=== PATIENT | female | born 1945 | race Caucasian/White ===

== ENCOUNTER 2016-11-11 08:00 | Outpatient (CLI) | payer MEDICARE, OTHER | END 2016-11-11 08:01 | disposition home or self-care (01) | DX: N39.0 Urinary tract infection, site not specified (principal) ==

== ENCOUNTER 2017-03-04 10:08 | Outpatient (CLI) | payer MEDICARE, OTHER | END 2017-03-04 10:09 | disposition home or self-care (01) | DX: Z12.31 Encounter for screening mammogram for malignant neoplasm of breast (principal) ==

== ENCOUNTER 2017-03-04 10:15 | Outpatient (CLI) | payer MEDICARE, OTHER | END 2017-03-04 10:16 | disposition home or self-care (01) | DX: M17.11 Unilateral primary osteoarthritis, right knee (principal) ==

== ENCOUNTER 2018-07-02 09:20 | Outpatient (CLI) | payer MEDICARE, OTHER ==
--- NOTE | 2018-07-05 09:14 | Mammography Report ---
Reason: SCREENING MAMMO Procedure Date: 07/02/2018 Accession Number: [id number] / [id number] Procedure: MGN - Screening Mammo Dig Bilat CPT Code: FULL RESULT: EXAM: Screening Mammo Dig Bilat DATE: 07/02/2018 9:41 AM CLINICAL HISTORY: 73-year-old female with 20 years of hormone replacement therapy presents for screening mammogram. TECHNIQUE: Bilateral CC and MLO views were obtained. COMPARISON: 03/04/2017, 02/20/2016, 03/01/2015, 02/28/2014. FINDINGS: The breasts demonstrate scattered fibroglandular densities bilaterally. Coarse typically benign bilateral calcifications are noted. There is an increasing asymmetry in the right breast seen on the MLO view 7 cm deep to the nipple and questionably on the cc view 5 cm deep to the nipple with associated increasing microcalcification. This finding warrants further dedicated mammographic views. IMPRESSION: Incomplete examination RECOMMENDATION: Additional evaluation as above. BIRADS CATEGORY 0: Incomplete examination STANDARD QUALIFYING STATEMENTS: 1. This examination was reviewed with the aid of Computer-Aided Detection (CAD). 2. A negative or benign imaging report should not delay biopsy if clinically suspicious findings are present. Consider surgical consultation if warrented. More than 5% of cancers are not identified by imaging. 3. Dense breasts may obscure an underlying neoplasm.
== END 2018-07-02 09:21 | disposition home or self-care (01) ==
LOC: DI.N 09:20
PROVIDERS: ATTEND Radiology Diagnostic Radiology
DX: Z12.31 Encounter for screening mammogram for malignant neoplasm of breast (principal)
CPT/HCPCS: 77067

== ENCOUNTER 2018-07-21 09:12 | Outpatient (CLI) | payer MEDICARE, OTHER ==
--- NOTE | 2018-07-21 10:10 | Mammography Report ---
Reason: ABN MAMMO - RT SPEC VIEWS Procedure Date: 07/21/2018 Accession Number: [id number] / [id number] Procedure: LUIS ARMANDO - Diag Special Views Dig RT CPT Code: FULL RESULT: EXAM: Diag Special Views Dig RT DATE: 07/21/2018 9:47 AM CLINICAL HISTORY: Possible increasing asymmetry in the central right breast on screening mammogram TECHNIQUE: Right MLO and CC spot compression views. COMPARISON: Mammogram 07/02/2018 FINDINGS: This examination is read in correlation with recent screening mammogram 07/02/2018. There are scattered fibroglandular densities. The questionable asymmetry of the right breast, retroareolar at mid depth, does not persist with spot compression views. No mass, architectural distortion, or concerning cluster of microcalcifications is seen. There are benign-appearing calcifications. IMPRESSION: BI-RADS Category 2. Benign findings. RECOMMENDATION: Annual screening mammogram unless otherwise clinically indicated. BIRADS CATEGORY 2: Benign findings STANDARD QUALIFYING STATEMENTS: 1. This examination was reviewed with the aid of Computer-Aided Detection (CAD). 2. A negative or benign imaging report should not delay biopsy if clinically suspicious findings are present. Consider surgical consultation if warrented. More than 5% of cancers are not identified by imaging. 3. Dense breasts may obscure an underlying neoplasm.
== END 2018-07-21 09:13 | disposition home or self-care (01) ==
LOC: DI 09:12
PROVIDERS: ATTEND Family Medicine
DX: R92.8 Other abnormal and inconclusive findings on diagnostic imaging of breast (principal)

== ENCOUNTER 2019-04-07 08:00 | Outpatient (CLI) | payer MEDICARE, OTHER ==
[2019-04-07 12:53] LABS: BILIRUBIN,URINE NEGATIVE (NEGATIVE); GLUCOSE, URINE (UA) NEGATIVE (NEGATIVE); KETONES,URINE (UA) NEGATIVE (NEGATIVE); LEUKOCYTE ESTERASE, URINE LARGE (NEGATIVE); NITRITE,URINE NEGATIVE (NEGATIVE); OCCULT BLOOD,URINE TRACE-INTA (NEGATIVE); PH,URINE 7.5 PH (5.0-7.5); PROTEIN,URINE NEGATIVE (NEGATIVE); UROBILINOGEN,URINE 0.2 (NORMAL) E.U./dL (NORMAL)
[2019-04-07 12:56] LABS: CLARITY,URINE CLEAR (CLEAR)
[2019-04-07 12:59] LABS: BASOPHILS % (AUTO) 0.8 %; EOSINOPHILS % (AUTO) 1.3 %; HGB - HEMOGLOBIN 13.2 g/dL (12.0-16.0); LYMPHOCYTES # (AUTO) 1.2 10^3/uL (1.5-3.5); LYMPHOCYTES % (AUTO) 36.1 %; MEAN CORPUSCULAR HEMOGLOBIN 26.9 pg (27.0-31.0); MEAN CORPUSCULAR HGB CONC 32.4 g/dL (32.0-36.0); MONOCYTES # (AUTO) 0.3 10^3/uL (0.0-1.0); NEUTROPHILS # (AUTO) 1.7 10^3/uL (1.5-6.6); NEUTROPHILS % (AUTO) 51.8 %; PLT - PLATELET COUNT 235 10^3/uL (130-450); RED BLOOD COUNT 4.93 10^6/uL (4.20-5.40); RED CELL DISTRIBUTION WIDTH 14.4 % (12.0-15.0); WHITE BLOOD COUNT 3.3 x10^3/uL (4.8-10.8)
[2019-04-07 13:09] LABS: BACTERIA,URINE Many /HPF (None Seen); SQUAMOUS EPITHELIAL CELL,UR FEW Squamous (<= Few); WBC CLUMPS,URINE PRESENT
[2019-04-07 13:12] LABS: CREATININE 0.6 mg/dL (0.4-1.0)
[2019-04-07 13:19] LABS: HEMOGLOBIN A1C 0.56 g/dL; HEMOGLOBIN A1C % 5.8 % (4.6-6.2)
== END 2019-04-07 23:59 | disposition home or self-care (01) ==
LOC: LAB.WCP 08:00
PROVIDERS: ATTEND Orthopaedic Surgery
DX: Z01.818 Encounter for other preprocedural examination (principal); N39.9 Disorder of urinary system, unspecified; R73.9 Hyperglycemia, unspecified; Z13.1 Encounter for screening for diabetes mellitus
CPT/HCPCS: 36415; 80048; 81001; 81003; 83036; 85025; 87077; 87086; 87181

== ENCOUNTER 2019-12-30 09:45 | Outpatient (CLI) | payer MEDICARE, OTHER ==
--- NOTE | 2020-01-10 09:20 | Mammography Report ---
Reason: ROUTINE MAMMO Procedure Date: 12/30/2019 Accession Number: [id number] / [id number] Procedure: MGN - Screening Mammo Dig Bilat CPT Code: Final Report FULL RESULT: EXAM: Screening Mammo Dig Bilat DATE: 12/30/2019 10:30 AM CLINICAL HISTORY: Screening encounter. TECHNIQUE: (B) - Bilateral CC and MLO views were obtained. COMPARISON: 07/21/2018 through 12/23/2010. PARENCHYMAL PATTERN: (A) - The breast(s) demonstrate(s) scattered fibroglandular densities. FINDINGS: There are no suspicious masses, calcifications, or areas of distortion. IMPRESSION: Negative examination. BI-RADS category 1. RECOMMENDATION: (ANNUAL) - Recommend routine annual screening mammography. BI-RADS CATEGORY: (1) - Negative. STANDARD QUALIFYING STATEMENTS: 1. This examination was not reviewed with the aid of Computer-Aided Detection (CAD). 2. A negative or benign imaging report should not preclude biopsy if clinically suspicious findings are present. 3. Dense breasts may obscure an underlying neoplasm. 4. This examination was reviewed without the aid of 3D breast imaging (tomosynthesis).
== END 2019-12-30 09:46 | disposition home or self-care (01) ==
LOC: DI.N 09:45
DX: Z12.31 Encounter for screening mammogram for malignant neoplasm of breast (principal)
CPT/HCPCS: 77067

== ENCOUNTER 2021-01-16 09:18 | Outpatient (CLI) | payer MEDICARE, OTHER ==
--- NOTE | 2021-01-17 13:25 | Mammography Report ---
BILATERAL DIGITAL SCREENING MAMMOGRAM 3D/2D: 01/16/2021 CLINICAL: Routine screening. Comparison is made to exams dated: 12/30/2019 mammogram, 07/21/2018 mammogram, 07/02/2018 mammogram, mammogram, 02/20/2016 mammogram, and 03/01/2015 mammogram - [facility]. Ther e are scattered fibroglandular elements in both breasts. There is an oval equal density mass with an obscured and circumscribed margin in the right breast at 7 o'clock anterior depth. No other significant masses, calcifications, or other findings are seen in either breast. IMPRESSION: INCOMPLETE: NEEDS ADDITIONAL IMAGING EVALUATION The oval equal density mass in the right breast is indeterminate. Mediolateral and spot compression views as well as additional views with possible ultrasound are recommended. This exam was interpreted at Station ID: [id number]. NOTE: For mammograms, a report in lay terms will be sent to the patient. Approximately 15% of breast malignancies will not be visualized mammographically. In the management of a palpable breast mass, a negative mammogram must not discourage biopsy of a clinically suspicious lesion. Electronically Signed By: Tony Mg M.D. ddp/penrad:01/16/2021 10:03:03 ACR BI-RADS Category 0: Incomplete 3340F PARENCHYMAL PATTERN: (A) - The breast(s) demonstrate(s) scattered fibroglandular densities. BI-RADS CATEGORY: (0) - 0 Mammo and [place] [id number] Immediate follow-up LATERALITY: (B)
== END 2021-01-16 09:19 | disposition home or self-care (01) ==
LOC: DI.N 09:18
DX: Z12.31 Encounter for screening mammogram for malignant neoplasm of breast (principal); N63.13 Unspecified lump in the right breast, lower outer quadrant

== ENCOUNTER 2021-01-30 08:48 | Outpatient (CLI) | payer MEDICARE, OTHER ==
--- NOTE | 2021-01-31 14:22 | Mammography Report ---
UNILATERAL RIGHT DIGITAL DIAGNOSTIC MAMMOGRAM 3D/2D: 01/30/2021 CLINICAL: Patient returns today to evaluate a focal asymmetry in the right breast. Comparison is made to exams dated: 01/16/2021 mammogram, 12/30/2019 mammogram, 07/21/2018 mammogram, mammogram, 03/04/2017 mammogram, and 02/20/2016 mammogram - [facility]. Ther e are scattered fibroglandular elements in right breast. Previously questioned asymmetry is less prominent. No other significant masses or calcifications are seen in the breast. IMPRESSION: INCOMPLETE: NEEDS ADDITIONAL IMAGING EVALUATION The oval equal density mass in the right breast is less prominent with spot compression but remains i ndeterminate. An ultrasound is recommended. This exam was interpreted at Station ID: [id number]. NOTE: For mammograms, a report in lay terms will be sent to the patient. Approximately 15% of breast malignancies will not be visualized mammographically. In the management of a palpable breast mass, a negative mammogram must not discourage biopsy of a clinically suspicious lesion. Electronically Signed By: Roque Oliver M.D. jr/:01/30/2021 11:10:07 ACR BI-RADS Category 0: Incomplete 3340F PARENCHYMAL PATTERN: (A) - The breast(s) demonstrate(s) scattered fibroglandular densities. BI-RADS CATEGORY: (0) - 0 Unspecified - other recall n/a LATERALITY: (B)
--- NOTE | 2021-01-31 14:22 | Ultrasound Report ---
LIMITED ULTRASOUND OF RIGHT BREAST: 01/30/2021 CLINICAL: Patient returns for additional imaging over a suspected cyst in the right breast. Comparison is made to exams dated: 01/30/2021 mammogram, 01/16/2021 mammogram, 12/30/2019 mammogram, 10/2018 mammogram, 07/02/2018 mammogram, and 03/04/2017 mammogram - [facility]. Ultrasound of the right breast 8 o'clock region was performed. There is a benign complicated cyst in the right breast at 7 o'clock anterior depth. IMPRESSION: BENIGN There is no sonographic evidence of malignancy. The complicated cyst in the right breast is benign. Return to annual mammogram screening schedule is recommended. This exam was interpreted at Station ID: [id number]. Electronically Signed By: Roque Oliver M.D., jr/stephanie:01/30/2021 11:10:33 Ultrasound BI-RADS: 2 Benign BI-RADS CATEGORY: (2) - 2 Mammogram [id number] return to screening LATERALITY: (B)
== END 2021-01-30 08:49 | disposition home or self-care (01) ==
LOC: DI 08:48
PROVIDERS: ATTEND Family Medicine
DX: R92.8 Other abnormal and inconclusive findings on diagnostic imaging of breast (principal); N60.01 Solitary cyst of right breast

== ENCOUNTER 2021-03-07 08:00 | Outpatient (CLI) | payer MEDICARE, OTHER | END 2021-03-07 23:59 | disposition home or self-care (01) | LOC: LAB.N 08:00 | PROVIDERS: ATTEND Nurse Practitioner | DX: R39.9 Unspecified symptoms and signs involving the genitourinary system (principal) | CPT/HCPCS: 87086 ==

== ENCOUNTER 2022-01-07 08:46 | Outpatient (CLI) | payer MEDICARE, OTHER ==
--- NOTE | 2022-01-08 12:08 | Mammography Report ---
BILATERAL DIGITAL SCREENING MAMMOGRAM 3D/2D: 01/07/2022 CLINICAL: Routine screening. Comparison is made to exams dated: 01/30/2021 ultrasound, 01/30/2021 mammogram, 01/16/2021 mammogram, mammogram, 07/21/2018 mammogram, and 07/02/2018 mammogram - [facility]. The re are scattered fibroglandular elements in both breasts. There is a benign cyst in the right breast. There also are benign cysts in the left breast. No significant masses, calcifications, or other findings are seen in either breast. There has been no significant interval change. IMPRESSION: BENIGN There is no mammographic evidence of malignancy. A 1 year screening mammogram is recommended. This exam was interpreted at Station ID: [id number]. NOTE: For mammograms, a report in lay terms will be sent to the patient. Approximately 15% of breast malignancies will not be visualized mammographically. In the management of a palpable breast mass, a negative mammogram must not discourage biopsy of a clinically suspicious lesion. Electronically Signed By: Benjy King M.D. slc/penrad:01/07/2022 12:29:03 ACR BI-RADS Category 2: Benign Finding(s) 3342F PARENCHYMAL PATTERN: (A) - The breast(s) demonstrate(s) scattered fibroglandular densities. BI-RADS CATEGORY: (2) - 2 RECOMMENDATION: (ANNUAL) - Recommend routine annual screening mammography. [id number] 1 year screening LATERALITY: (B)
== END 2022-01-07 08:47 | disposition home or self-care (01) ==
LOC: DI.N 08:46
DX: Z12.31 Encounter for screening mammogram for malignant neoplasm of breast (principal)

== ENCOUNTER 2022-06-01 08:00 | Outpatient (CLI) | payer MEDICARE, OTHER | END 2022-06-01 23:59 | disposition home or self-care (01) | LOC: LAB.N 08:00 | PROVIDERS: ATTEND Nurse Practitioner | DX: N39.0 Urinary tract infection, site not specified (principal) | CPT/HCPCS: 87086 ==

== ENCOUNTER 2023-01-08 09:05 | Outpatient (CLI) | payer MEDICARE, OTHER ==
--- NOTE | 2023-01-09 14:58 | Mammography Report ---
BILATERAL DIGITAL SCREENING MAMMOGRAM 3D/2D: 01/08/2023 CLINICAL: Routine screening. Comparison is made to exams dated: 01/07/2022 mammogram, 01/30/2021 ultrasound, 01/30/2021 mammogram, 08/2021 mammogram, 12/30/2019 mammogram, and 07/21/2018 mammogram - [facility]. There are scattered areas of fibroglandular density in both breasts (category b / 25%-50% glandular t issue). There is a benign cyst in the right breast. There also are benign cysts in the left breast. No significant masses, calcifications, or other findings are seen in either breast. There has been no significant interval change. IMPRESSION: BENIGN There is no mammographic evidence of malignancy. A 1 year screening mammogram is recommended. Based on the Tyrer Cuzick model (a risk assessment model) the patients lifetime risk is 2.3% and her 10 year risk is 0.0%. According to the ACR, ACS, and NCCN guidelines, an annual breast MRI exam doreen g with mammogram is recommended if the patients lifetime risk is 20% or greater. This exam was interpreted at Station ID: [id number]. NOTE: For mammograms, a report in lay terms will be sent to the patient. Approximately 15% of breast malignancies will not be visualized mammographically. In the management of a palpable breast mass, a negative mammogram must not discourage biopsy of a clinically suspicious lesion. Electronically Signed By: Gene vora/stephanie:01/08/2023 11:42:57 letter sent: No_Letter ACR BI-RADS Category 2: Benign Finding(s) 3342F PARENCHYMAL PATTERN: (A) - The breast(s) demonstrate(s) scattered fibroglandular densities. BI-RADS CATEGORY: (2) - 2 Mammogram [id number] 1 year screening LATERALITY: (B)
== END 2023-01-08 09:06 | disposition home or self-care (01) ==
LOC: DI.N 09:05
DX: Z12.31 Encounter for screening mammogram for malignant neoplasm of breast (principal)

== ENCOUNTER 2023-04-16 07:09 | Outpatient (CLI) | payer MEDICARE, OTHER ==
[2023-04-16 12:31] LABS: THYROID STIMULATING HORMONE < 0.08 uIU/mL (0.34-5.60)
[2023-04-16 13:02] LABS: FREE T4 (FREE THYROXINE) 1.14 ng/dL (0.58-1.64)
== END 2023-04-16 07:10 | disposition home or self-care (01) ==
LOC: LAB.N 07:09
PROVIDERS: ATTEND Physician Assistant
DX: R94.6 Abnormal results of thyroid function studies (principal)
CPT/HCPCS: 36415; 84439; 84443; 84481

== ENCOUNTER 2023-04-20 09:30 | Outpatient (CLI) | payer MEDICARE, OTHER | END 2023-04-20 09:45 | disposition home or self-care (01) | LOC: LAB.N 09:30 | PROVIDERS: ATTEND Nurse Practitioner | DX: N39.0 Urinary tract infection, site not specified (principal) | CPT/HCPCS: 87077; 87086; 87181 ==

== ENCOUNTER 2023-04-30 09:57 | Outpatient (CLI) | payer MEDICARE, OTHER ==
[2023-04-30 10:43] LABS: THYROID STIMULATING HORMONE < 0.08 uIU/mL (0.34-5.60)
[2023-04-30 10:44] LABS: FREE T3 3.69 pg/mL (2.5-3.9)
[2023-04-30 10:45] LABS: FREE T4 (FREE THYROXINE) 1.12 ng/dL (0.58-1.64)
--- NOTE | 2023-04-30 16:49 | Ultrasound Report ---
PROCEDURE: Head or Neck Soft Tissue INDICATIONS: HYPERTHYROIDISM TECHNIQUE: Real-time scanning was performed of the thyroid gland, with image documentation. COMPARISON: None FINDINGS: Right: Thyroid lobe measures 5.7 x 1.8 x 1.9 cm, and is homogeneous in echotexture. Left: Thyroid lobe measures 5.4 x 2.0 x 2.3 cm, and is homogenous in echotexture. Isthmus: 2.3 mm thick. Small subcentimeter: Cysts is noted throughout the right and left lobes of thyroid Nodule number: One Location: Right superior Size: 0.7 x 0.8 x 0.5 cm. Composition: Solid (2 points). Echogenicity: Hypoechoic (2 points). Shape: wider than tall. Margins: Smooth (0 points). Echogenic foci: None (0 points). Total points: 4 ACR TI-RADS category: 4. Nodule number: Two Location: Right mid Size: 0.5 x 0.6 x 0.5 cm. Composition: Solid (2 points). Echogenicity: Hypoechoic (2 points). Shape: wider than tall. Margins: Smooth (0 points). Echogenic foci: None (0 points). Total points: 4 ACR TI-RADS category: 4. Nodule number: Three Location: Right inferior Size: 1.1 x 0.9 x 0.9 cm. Composition: Solid (2 points). Echogenicity: Isoechoic (1 point). Shape: wider than tall. Margins: Smooth (0 points). Echogenic foci: None (0 points). Total points: 3 ACR TI-RADS category: 3. IMPRESSION: 3 separate nodules in the right lobe of the thyroid. Best practice guidelines suggest follow-up sched ule as below ACR TI-RADS definitions and recommendations: TI-RADS 1 (benign): 0 points. FNA not needed. TI-RADS 2 (not suspicious): 2 points. FNA not needed. TI-RADS 3 (mildly suspicious): 3 points. "FNA if 2.5 cm or larger, follow up if 1.5 cm or larger (at 1, 3, and 5 years). TI-RADS 4 (moderately suspicious): 4-6 points. "FNA if 1.5 cm or larger, follow up if 1 cm or larger (at 1, 2, 3, and 5 years). TI-RADS 5 (highly suspicious): 7 points or more. "FNA if 1 cm or larger, follow up if 0.5 cm or larger (every year for 5 years). Reviewed by: Wesley Alonzo MD on 04/30/2023 3:47 PM AKDT Approved by: Wesley Alonzo MD on 04/30/2023 3:47 PM AKDT Station ID: [id number]
[2023-05-01 18:07] LABS: THYROGLOBULIN ANTIBODY 1.2 IU/mL (0.0-0.9)
== END 2023-04-30 09:58 | disposition home or self-care (01) ==
LOC: DI 09:57
PROVIDERS: ATTEND Physician Assistant
DX: E04.2 Nontoxic multinodular goiter (principal); E23.0 Hypopituitarism; E05.90 Thyrotoxicosis, unspecified without thyrotoxic crisis or storm
CPT/HCPCS: 36415; 84439; 84443; 84481; 86376; 86800

== ENCOUNTER 2023-06-08 20:04 | Inpatient (IN) | payer MEDICARE, OTHER ==
[2023-06-08] MEDS ORDERED: SODIUM CHLORIDE 0.9% 1,000 ML IV STA ×2 (20:33→21:38)
[2023-06-08] MEDS ORDERED: ONDANSETRON 4 MG/2 ML VIAL IVP STA (20:33)
[2023-06-08 20:41] LABS: BASOPHILS % (AUTO) 0.1 %; EOSINOPHILS % (AUTO) 0.1 %; HCT - HEMATOCRIT 36.9 % (37.0-47.0); HGB - HEMOGLOBIN 12.5 g/dL (12.0-16.0); LYMPHOCYTES # (AUTO) 0.7 10^3/uL (1.5-3.5); LYMPHOCYTES % (AUTO) 9.2 %; MEAN CORPUSCULAR HEMOGLOBIN 26.3 pg (27.0-31.0); MEAN CORPUSCULAR HGB CONC 33.9 g/dL (32.0-36.0); MEAN CORPUSCULAR VOLUME 77.5 fL (81.0-99.0); MEAN PLATELET VOLUME 10.6 fL (7.9-10.8); MONOCYTES # (AUTO) 0.5 10^3/uL (0.0-1.0); MONOCYTES % (AUTO) 6.4 %; NEUTROPHILS # (AUTO) 6.7 10^3/uL (1.5-6.6); PLT - PLATELET COUNT 218 10^3/uL (130-450); RED BLOOD COUNT 4.76 10^6/uL (4.20-5.40); RED CELL DISTRIBUTION WIDTH 13.9 % (12.0-15.0)
[2023-06-08 20:59] LABS: ALBUMIN 3.8 g/dL (3.2-5.5)
[2023-06-08 21:11] LABS: ALBUMIN/GLOBULIN RATIO 1.3 (1.0-2.2); BILIRUBIN,TOTAL 2.2 mg/dL (0.2-1.0); CALCIUM 9.6 mg/dL (8.5-10.3); CREATININE 0.4 mg/dL (0.6-1.3); POTASSIUM 3.3 mmol/L (3.5-4.5); TOTAL PROTEIN 6.8 g/dL (6.4-8.9)
[2023-06-08 21:37] LABS: B. PARAPERTUSSIS- RESP PCR PAN NOT DETECTED; B. PERTUSSIS- RESP PCR PANEL NOT DETECTED; C. PNEUMONIAE- RESP PCR PANEL NOT DETECTED; CORONAVIRUS 229E-RESP PCR NOT DETECTED; CORONAVIRUS HKU1-RESP PCR NOT DETECTED; CORONAVIRUS NL63-RESP PCR NOT DETECTED; CORONAVIRUS OC43-RESP PCR NOT DETECTED; HUMAN METAPNEUMOVIRUS NOT DETECTED; INFLUENZA A- RESP PCR PANEL NOT DETECTED; INFLUENZA B - RESP PCR PANEL NOT DETECTED; M. PNEUMONIAE- RESP PCR PANEL NOT DETECTED; PARAINFLUENZA VIRUS 1 NOT DETECTED; PARAINFLUENZA VIRUS 2 NOT DETECTED; PARAINFLUENZA VIRUS 3 NOT DETECTED; PARAINFLUENZA VIRUS 4 NOT DETECTED; RHINOVIRUS/ENTEROVIRUS NOT DETECTED; RSV- RESP PCR PANEL NOT DETECTED; SARS-CoV-2 -RESP PCR PANEL NOT DETECTED
[2023-06-08 21:58] LABS: BILIRUBIN,URINE NEGATIVE (NEGATIVE); GLUCOSE, URINE (UA) NEGATIVE (NEGATIVE); KETONES,URINE (UA) TRACE mg/dL (NEGATIVE); LEUKOCYTE ESTERASE, URINE SMALL (NEGATIVE); NITRITE,URINE POSITIVE (NEGATIVE); OCCULT BLOOD,URINE NEGATIVE (NEGATIVE); PROTEIN,URINE NEGATIVE (NEGATIVE); UROBILINOGEN,URINE 0.2 (NORMAL) E.U./dL (NORMAL)
[2023-06-08 22:01] LABS: CLARITY,URINE HAZY (CLEAR)
[2023-06-08 22:04] LABS: BACTERIA,URINE Many /HPF (None Seen); RBC,URINE 0-5 /HPF (0-5); SQUAMOUS EPITHELIAL CELL,UR RARE Squamous (<= Few)
[2023-06-08] MEDS ORDERED: cefTRIAXone 1 GM VIAL IVP STA (22:17)
[2023-06-08 23:27] LABS: CALCIUM 8.7 mg/dL (8.5-10.3); CREATININE 0.5 mg/dL (0.4-1.0); POTASSIUM 3.2 mmol/L (3.5-5.0)
--- NOTE | 2023-06-08 23:44 | CT Report ---
PROCEDURE: HEAD WO INDICATIONS: altered TECHNIQUE: Noncontrast 4.5 mm thick angled axial sections acquired from the foramen magnum to the vertex. For r adiation dose reduction, the following was used: automated exposure control, adjustment of mA and/or kV according to patient size. COMPARISON: None. FINDINGS: Image quality: Excellent. CSF spaces: There is mild cerebral volume loss with prominence of the ventricles and sulci. Basal ci sterns are patent. No extra-axial fluid collections. Brain: No intracranial hemorrhage or midline shift. There is an oval slightly hyperattenuating lesio n in the left occipital lobe medial to the posterior horn of the left lateral ventricle. This demonst rates indistinct margins. There are subcortical and periventricular white matter hypodensities consis tent with mild chronic small vessel ischemic changes. Skull and face: Calvarium and visualized facial bones are intact, without suspicious lesions. Sinuses: Visualized sinuses and mastoids are clear. IMPRESSION: 1. No acute intracranial hemorrhage or midline shift. 2. Hyperattenuating mass lesion medially in the left occipital lobe. The differential includes a prim ganesh neoplasm such as a glioma or metastatic disease. Recommend further evaluation with a contrast-enh anced MRI when clinically feasible. Findings discussed with Dr. Matson on 06/08/2023 at 11:38 PM. Reviewed by: Tony Harris MD on 06/08/2023 11:42 PM PDT Approved by: Tony Harris MD on 06/08/2023 11:42 PM PDT Station ID: [id number]
--- NOTE | 2023-06-08 23:47 | ED Physician Documentation ---
History of Present Illness - Stated complaint Stated Complaint: DISORIENTED - Chief complaint Chief Complaint: Neuro - History obtained from History obtained from: Patient, Family - History of Present Illness Timing: Today Pain level max: 0 Pain level now: 0 - Additonal information Additional information: Patient is a 78-year-old female brought in by family today. She states that she had a "thyroid scan" on Thursday at [facility]. She states since that time she has felt generally unwell. Has had nausea and vomiting today. No fevers. No chills. Family states that she has been "confused" and slower to respond than usual. Patient is on atenolol at home. No recent travel or antibiotics. No recent surgeries. No focal neurological deficits. No slurred speech. No facial droop. Review of Systems Constitutional: denies: Fever, Chills Cardiac: denies: Chest pain / pressure, Palpitations Respiratory: denies: Dyspnea, Cough GI: reports: Nausea, Vomiting. denies: Diarrhea : denies: Dysuria, Frequency, Hesitancy Skin: denies: Rash Musculoskeletal: denies: Neck pain, Back pain Neurologic: reports: Confused. denies: Headache, Head injury, LOC PD PAST MEDICAL HISTORY - Past Medical History Past Medical History: Yes Cardiovascular: Hypertension - Allergies Allergies/Adverse Reactions: Allergies Allergy/AdvReac Type Severity Reaction Status Date / Time No Known Drug Allergies Allergy Verified 06/08/23 20:08 - Living Situation Living Arrangement: reports: At home - Social History Does the pt smoke?: No Does the pt have substance abuse?: No - Family History Family history: reports: Non contributory PD ED PE NORMAL - Vitals Vital signs reviewed: Yes - General General: Alert and oriented X 3, No acute distress, Well developed/nourished, Other (Mildly slow to respond.) - HEENT HEENT: PERRL, Moist mucous membranes, Pharynx benign - Neck Neck: Supple, no meningeal sign, No bony TTP - Cardiac Cardiac: RRR, Strong equal pulses - Respiratory Respiratory: No respiratory distress, Clear bilaterally - Abdomen Abdomen: Soft, Non tender, Non distended - Back Back: No CVA TTP, No spinal TTP - Derm Derm: Warm and dry, No rash - Extremities Extremities: No edema, No calf tenderness / cord - Neuro Neuro: Alert and oriented X 3 - Psych Psych: Normal mood, Normal affect Results - Vitals Vitals: Vital Signs - 24 hr 06/08/23 06/08/23 20:08 23:00 Temperature 36.5 C Heart Rate 85 87 Respiratory 16 18 Rate Blood Pressure 156/78 H 149/105 H O2 Saturation 100 98 Oxygen O2 Source Room air - Labs Labs: Laboratory Tests 06/08/23 06/08/23 06/08/23 20:20 20:28 20:28 WBC 8.0 RBC 4.76 Hgb 12.5 Hct 36.9 L MCV 77.5 L MCH 26.3 L MCHC 33.9 RDW 13.9 Plt Count 218 MPV 10.6 Neut # (Auto) 6.7 H Lymph # (Auto) 0.7 L Vigo # (Auto) 0.5 Eos # (Auto) 0.0 Baso # (Auto) 0.0 Absolute Nucleated RBC 0.00 Nucleated RBC % 0.0 Sodium 118 L* Potassium 3.3 L Chloride 86 L Carbon Dioxide 25 Anion Gap 7.0 BUN 6 Creatinine 0.4 L Estimated GFR (MDRD) 155 Glucose 148 H Calcium 9.6 Total Bilirubin 2.2 H AST 15 ALT 15 Alkaline Phosphatase 58 Total Protein 6.8 Albumin 3.8 Globulin 3.0 Albumin/Globulin Ratio 1.3 Lipase 8 L Urine Color Urine Clarity Urine pH Ur Specific Pansey Urine Protein Urine Glucose (UA) Urine Ketones Urine Occult Blood Urine Nitrite Urine Bilirubin Urine Urobilinogen Ur Leukocyte Esterase Urine RBC Urine WBC Ur Squamous Epith Cells Urine Bacteria Ur Microscopic Review Urine Culture Comments Nasal Adenovirus (PCR) NOT DETECTED Nasal B. parapertussis DNA (PCR) NOT DETECTED Nasal Coronavir 229E PCR NOT DETECTED Nasal Coronavir HKU1 PCR NOT DETECTED Nasal Coronavir NL63 PCR NOT DETECTED Nasal Coronavir OC43 PCR NOT DETECTED Nasal Enterovir/Rhinovir PCR NOT DETECTED Nasal Influenza B PCR NOT DETECTED Nasal Influenza A PCR NOT DETECTED Nasal Parainfluen 1 PCR NOT DETECTED Nasal Parainfluen 2 PCR NOT DETECTED Nasal Parainfluen 3 PCR NOT DETECTED Nasal Parainfluen 4 PCR NOT DETECTED Nasal RSV (PCR) NOT DETECTED Nasal B.pertussis DNA PCR NOT DETECTED Nasal C.pneumoniae (PCR) NOT DETECTED Vamshi Human Metapneumo PCR NOT DETECTED Nasal M.pneumoniae (PCR) NOT DETECTED Nasal SARS-CoV-2 (PCR) NOT DETECTED 06/08/23 06/08/23 21:38 23:06 WBC RBC Hgb Hct MCV MCH MCHC RDW Plt Count MPV Neut # (Auto) Lymph # (Auto) Vigo # (Auto) Eos # (Auto) Baso # (Auto) Absolute Nucleated RBC Nucleated RBC % Sodium 126 L Potassium 3.2 L Chloride 91 L Carbon Dioxide 25 Anion Gap 10.0 BUN 6 Creatinine 0.5 Estimated GFR (MDRD) 120 Glucose 141 H Calcium 8.7 Total Bilirubin AST ALT Alkaline Phosphatase Total Protein Albumin Globulin Albumin/Globulin Ratio Lipase Urine Color YELLOW Urine Clarity HAZY Urine pH 7.0 Ur Specific Pansey <=1.005 Urine Protein NEGATIVE Urine Glucose (UA) NEGATIVE Urine Ketones TRACE Urine Occult Blood NEGATIVE Urine Nitrite POSITIVE H Urine Bilirubin NEGATIVE Urine Urobilinogen 0.2 (NORMAL) Ur Leukocyte Esterase SMALL H Urine RBC 0-5 Urine WBC 11-25 H Ur Squamous Epith Cells RARE Squamous Urine Bacteria Many H Ur Microscopic Review INDICATED Urine Culture Comments INDICATED Nasal Adenovirus (PCR) Nasal B. parapertussis DNA (PCR) Nasal Coronavir 229E PCR Nasal Coronavir HKU1 PCR Nasal Coronavir NL63 PCR Nasal Coronavir OC43 PCR Nasal Enterovir/Rhinovir PCR Nasal Influenza B PCR Nasal Influenza A PCR Nasal Parainfluen 1 PCR Nasal Parainfluen 2 PCR Nasal Parainfluen 3 PCR Nasal Parainfluen 4 PCR Nasal RSV (PCR) Nasal B.pertussis DNA PCR Nasal C.pneumoniae (PCR) Vamshi Human Metapneumo PCR Nasal M.pneumoniae (PCR) Nasal SARS-CoV-2 (PCR) - Rads (name of study) CT head Relevant Findings:: Final report received, See rad report CT chest Relevant Findings:: Final report received, See rad report CT abd/pelvis Relevant Findings:: Final report received, See rad report PD Medical Decision Making - ED course Complexity details: reviewed results, re-evaluated patient, considered differe hunterial, d/w patient, d/w family ED course: 78-year-old female with altered mental status, nausea and vomiting. She has significant hyponatremia on laboratory testing. CBC does not show any significant abnormalities. Sodium 118. She is not on any diuretics. She was given normal saline. Repeat sodium is at 126. Last sodium we have here was 132 in 2019. Patient states she has never had hyponatremia before. No significant findings on CT of the abdomen pelvis or chest CT other than a possible mild colitis. Her head CT does show a small mass. Discussed with radiology, recommend MRI with contrast in the morning for further characterization. We will admit the patient for hyponatremia with altered mental status, UTI, given Rocephin, and further evaluation of the brain mass. There is no midline shift. Consult placed for hospitalist service. Discussed case the hospitalist service and will admit for further care. This document was made in part using voice recognition software. While efforts are made to proofread this document, sound alike and grammatical errors may occur. Departure - Departure Disposition: 66 [facility] DC/Xfer Clinical Impression: Hyponatremia, Brain mass UTI (urinary tract infection) Qualifiers: Urinary tract infection type: acute cystitis Hematuria presence: without hematuria Qualified Code(s): N30.00 - Acute cystitis without hematuria Altered mental status Qualifiers: Altered mental status type: unspecified Qualified Code(s): R41.82 - Altered mental status, unspecified Condition: Stable Forms: PCP List
--- NOTE | 2023-06-09 00:08 | CT Report ---
PROCEDURE: CHEST W INDICATIONS: hyponatremia CONTRAST: Omni 300 100ml TECHNIQUE: After the administration of intravenous contrast, 1 mm axial images were acquired from the pulmonary apices through the posterior costophrenic angles. Axial 5 mm soft tissue kernel reconstructions were performed as well as 8 mm axial MIP and coronal and sagittal 5 mm reformations. For radiation dose reduction, the following was used: automated exposure control, adjustment of mA and/or kV according to patient size. COMPARISON: None. FINDINGS: Image quality: There is beam hardening artifact from patient's upper extremities limiting evaluation. Lower Neck: No lymphadenopathy by size criteria. Thyroid: Visualized thyroid demonstrates no discrete nodules. Axillae: No lymphadenopathy by size criteria. Chest Wall: Unremarkable. Bones: There is mild scalloping along with severe endplate of the L1 vertebral body of indeterminate acuity. Visualized osseous structures demonstrate no suspicious lesions. Lungs and Airways: No acute consolidation. There is mild dependent atelectasis bilaterally. The righ t upper lobe 0.3 cm pulmonary nodule on series 3 image 17. In the left upper lobe, there is a 0.3 cm nodule on series 3 image 22. The trachea and central airways are patent. Pleura: No pneumothorax or pleural effusions. Heart: Heart size is normal. No pericardial effusion. Thoracic Vessels: The aorta and pulmonary arteries are normal in size. Mediastinum and Sommer: No lymphadenopathy by size criteria. Esophagus: No wall thickening. No hiatal hernia. Upper Abdomen: Unremarkable. IMPRESSION: 1. Small pulmonary nodules in the upper lobes measuring up to 0.3 cm are indeterminate. Recommend att ention on follow-up. 2. No suspicious mass lesions. Reviewed by: Tony Harris MD on 06/09/2023 12:07 AM PDT Approved by: Tony Harris MD on 06/09/2023 12:07 AM PDT Station ID: [id number]
[2023-06-09] MEDS ORDERED: SODIUM CHLORIDE FLUSH 0.9% 10 ML SYRINGE IVP PRN (00:29)
[2023-06-09] MEDS ORDERED: ONDANSETRON 4 MG/2 ML VIAL IVP PRN (00:29)
[2023-06-09] MEDS ORDERED: ACETAMINOPHEN 325 MG TABLET PO PRN (00:29)
--- NOTE | 2023-06-09 00:29 | CT Report ---
PROCEDURE: ABDOMEN/PELVIS W INDICATIONS: LLQ pain, vomiting CONTRAST: Omni 300 100ml TECHNIQUE: After the administration of intravenous contrast, 5 mm thick sections acquired from the diaphragms to the symphysis. 5 mm thick coronal and sagittal reformats were acquired. For radiation dose reducti on, the following was used: automated exposure control, adjustment of mA and/or kV according to merrill ent size. COMPARISON: Concurrent CT of the chest. FINDINGS: Image quality: Excellent. Lung bases:There is mild dependent atelectasis. Heart: Heart is normal in size. ABDOMEN: Liver: No mass lesion. Gallbladder: Within normal limits without calcified gallstones. Biliary ducts: No biliary ductal dilatation. Pancreas: Unremarkable. Spleen: Normal in size. Adrenal Glands: No adrenal nodules. Kidneys and Ureters:No definite hydronephrosis. There is mild fullness of the renal collecting syste ms bilaterally likely secondary to bladder distention. Stomach and Bowel: Stomach and small bowel loops are normal in caliber and wall thickness. No perice carlos plantar changes to suggest appendicitis. There is colonic diverticulosis without definite acute d iverticulitis. Mild short segment wall thickening is demonstrated in the sigmoid colon. Peritoneum: No abnormal intraperitoneal fluid. No free air. Ventral Wall: No hernia. Abdominal Nodes: No retroperitoneal or mesenteric adenopathy by size criteria. Vessels: Aorta and inferior vena cava are normal in size. PELVIS: Pelvic Organs: Unremarkable. Bladder:There is marked distention of the urinary bladder. No bladder wall thickening.. Pelvic Nodes: No enlarged lymph nodes. Miscellaneous: No inguinal hernias. Bones: Visualized osseous structures demonstrate no suspicious lesions. IMPRESSION: 1. Mild short segment wall thickening in the sigmoid colon suggestive of a colitis. However, an intra mural mass cannot be excluded. Consider further evaluation with colonoscopy. 2. Marked distention of the urinary bladder. Reviewed by: Tony Harris MD on 06/09/2023 12:28 AM PDT Approved by: Tony Harris MD on 06/09/2023 12:28 AM PDT Station ID: [id number]
[2023-06-09] MEDS ORDERED: SODIUM CHLORIDE 0.9% 1,000 ML IV SCH (01:00)
--- NOTE | 2023-06-09 01:12 | HISTORY & PHYSICAL EXAMINATION ---
History and Physical - History and Physical Chief Complaint: Altered Mental Status History of Present Illness The patient, a 78-year-old female, was brought to the emergency room by her family due to confusion. Two days prior, she had undergone a thyroid scan. Today, she presents with symptoms of nausea, confusion, and an occasional headache. Her sodium level was notably low at 118, prompting the administration of an IV fluid bolus. A CT scan of her head revealed a potential brain mass. Urinalysis results indicated the likelihood of a urinary tract infection (UTI), and the patient received IV Rocephin. At present, she is alert and able to respond accurately to all questions. Her family, who are present at the bedside, reported that this is her first episode of confusion. She denies any recent weight loss, night sweats, fever, chills, chest pain, shortness of breath, or lower extremity edema. The patient is currently on Atenolol and is able to walk independently. Past Medical History Hypertension Past Surgical History None Social History No history of alcohol or illicit drug use Family History No family history of cancer Allergies The patient has a known allergy to diabetes and has shown an elevated response to Atenolol. Physical Examination *Vital Signs:* - Blood Pressure: 149/90 - Respiration: 18 - Heart Rate: 87 - Oxygen Saturation: 98% on room air *General:* The patient's head is atraumatic and normocephalic. Pupils are reactive to light and accommodation. The neck shows no JVD. CVS presents a regular rate rhythm. Respiratory sounds are equal on both sides. The abdomen is neither tender nor distended. No clubbing, cyanosis, or edema is observed in the extremities. Musculoskeletal examination reveals no calf tenderness. Neurologically, the patient is alert, oriented to time, place, and person, and able to move all four extremities. Psychologically, the patient displays a normal mood and affect. Labs All necessary labs have been reviewed. Imaging CT of the head has been reviewed. Assessment 1. Acute metabolic encephalopathy 2. Severe hyponatremia 3. Possible sigmoid colitis 4. UTI 5. Brain mass, left occipital lobe 6. Abnormal thyroid level 7. Hypertension Plan The patient will be admitted on telemetry. Her treatment plan includes IV hydration with normal saline at a reduced rate of 75 ml per hour due to her rapid sodium correction. She will continue receiving IV Rocephin and Flagyl for the UTI and possible colitis. An MRI of the brain, with and without contrast, will be scheduled for the morning, alongside regular neurological checks. The patient will continue her Atenolol regimen. Code Status Full code Additional Notes This telemedicine evaluation, which used a bedside telemedicine audiovisual cart, took a total of 70 minutes. Verbal consent was obtained before the encounter. The patient is currently located in the emergency room of [facility] in [facility], while I am based in [place], [place].
[2023-06-09] MEDS ORDERED: metroNIDAZOLE 500 MG/100 ML 500 MG/100 ML BAG IV SCH (02:00)
[2023-06-09] MEDS ORDERED: iohexoL-300 100 ML VIAL IVP ONE (02:07)
[2023-06-09] MEDS: SODIUM CHLORIDE FLUSH 0.9% 10 ML SYRINGE IVP SCH ×2 (03:04→08:32)
[2023-06-09 05:53] LABS: CALCIUM 8.9 mg/dL (8.5-10.3); CREATININE 0.5 mg/dL (0.6-1.3); POTASSIUM 3.5 mmol/L (3.5-4.5)
[2023-06-09] MEDS ORDERED: DEXTROSE 5% 1,000 ML IV SCH (09:00)
[2023-06-09] MEDS ORDERED: METOPROLOL TARTRATE 25 MG TABLET PO SCH (09:00)
[2023-06-09] MEDS ORDERED: HEPARIN 5,000 UNIT/ML VIAL SUBQ SCH (09:00)
--- NOTE | 2023-06-09 10:53 | PHARMACY PROGRESS NOTE ---
- Best Possible Medication History Admit Date and Time: 06/09/23 0029 Processed by: Pharmacy Medication History completed: Yes Patient Interview: Completed Secondary Source(s): Pharmacy records As the person ultimately responsible for medication therapy, providers are able to order a medication from an existing home medication list in [facility] via the "Reconcile Routine" prior to Confirmation of that medication by technician support association. Such practice is discouraged except when the physician, in their clinical judgment, deems that a medical need exists for a medication without regard to previous use.
--- NOTE | 2023-06-09 15:37 | MRI Report ---
PROCEDURE: BRAIN W/WO INDICATIONS: brain mass CONTRAST: gadavist 7.8ml TECHNIQUE: Noncontrast axial T1 spin echo, axial T2 fast spin echo, sagittal and axial FLAIR, coronal T2 fast sp in echo, axial gradient echo, axial diffusion and ADC through the brain. After the administration of contrast, axial and coronal T1 spin echo with fat saturation through the brain. COMPARISON: CT head 06/08/2023 FINDINGS: Image quality: Excellent. CSF spaces: Basal cisterns are patent. No extra-axial fluid collections. Ventricles are normal in size and shape. Brain: In the posterior horn of the left ventricle, there is a relative hyperintense T1, T2 mass with very minimal areas of heterogeneous enhancement there is significant hypointensity on gradient seque nce encompassing significant portions of the mass. There is no vasogenic edema. There is very minimal effacement of the superior aspect of the posterior left quadrigeminal plate cistern secondary to loc ation of mass rather than true vasogenic edema. There is cerebral volume loss for age. There is periventricular white matter chronic small vessel is chemic change. The brainstem appears normal. Diffusion-weighted images demonstrate no acute ischemi c insults. No chronic ischemic insults. Normal intravascular flow voids are present. Skull and face: Calvarial marrow is normal in signal. Orbits appear normal. Sinuses: Sinuses and mastoids appear clear. IMPRESSION: Heterogeneous mass within the posterior horn of the left ventricle corresponding to hyperdensity iden tified on CT exam. There appears the areas of hemosiderin deposition/calcification with minimal/irreg ular enhancement. 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 Reviewed by: Dorcas Montgomery MD on 06/09/2023 3:36 PM PDT Approved by: Dorcas Montgomery MD on 06/09/2023 3:36 PM PDT Station ID: [id number]
--- NOTE | 2023-06-09 15:50 | Discharge Plan ---
Discharge Plan Problem Reviewed?: Yes Disposition: Home, Self Care Condition: Stable Diet: Regular (No more than 2000 mL of fluid/2 L a day) Activity Restrictions: Activity as Tolerated Shower Restrictions: No Driving Restrictions: No Health Concerns: You came to the emergency room because you had not been feeling well starting the night before. You were nauseated, vomiting, lightheaded and more confused. You are wondering if this is reaction to a thyroid scan that was done on June 05. We found you to have a very low sodium of 118. Normal is 135. You do not have to take any medications that cause low sodium, you do not have any diseases that cause water retention that caused low sodium, nor do you have compulsive water drinking. You do drink approximately 4 L or 1 gallon of water a day. In evaluating other causes of low sodium, which is a syndrome of inappropriate antidiuretic hormone, a CAT scan was done of your brain. You do have a lesion on the left side. A an MRI was done to make sure this was not cancer. We really cannot tell. The final report is not back yet. Plan of Treatment: 1. Please see your primary care provider, Cheri Smith, for follow-up 2. Please have your primary care provider follow-up on the MRI report. The MRI should establish whether you need to be seen by a neurosurgeon or whether this could just be watched. 3. I would like you to get your blood test done for your sodium again. Please do it on June 16. I have provided you with a lab slip to do so. You can get your blood drawn here at this hospital. 4. You were identified as having a urinary tract infection. Bactrim DS has been prescribe and sent to your pharmacy. Care Goals: The whole reason you were seen for the thyroid scan was fatigue. Your hope was to find out why you are tired and to get to the bottom of it. Assessment: Patient is alert, oriented. Lucid historian. Normal speech patterns. Daughter is at the bedside all day long. Both feel she is stable to go home No Smoking: If you smoke, Please STOP! Call for help.
--- NOTE | 2023-06-09 16:01 | DISCHARGE SUMMARY ---
"Discharge Summary Admit Date: 06/09/23 Discharge Date: 06/09/23 Discharging Provider: Magda Araiza MD Primary Care Provider: RACHEL Barrera Code Status: Attempt Resuscitation Condition at Discharge: Stable Discharge Disposition: 01 Home, Self Care - DIAGNOSES Discharge Diagnoses with Status of Each Condition: 1. Hyponatremia, symptomatic 2. Acute metabolic encephalopathy 2. Generalized weakness and fatigue 3. Choroid plexus mass 4. UTI - HPI History of Present Illness: The patient, a 78-year-old female, was brought to the emergency room by her family due to confusion. Two days prior, she had undergone a thyroid scan. Today, she presents with symptoms of nausea, confusion, and an occasional headache. Her sodium level was notably low at 118, prompting the administration of an IV fluid bolus. A CT scan of her head revealed a potential brain mass. Urinalysis results indicated the likelihood of a urinary tract infection (UTI), and the patient received IV Rocephin. At present, she is alert and able to respond accurately to all questions. Her family, who are present at the bedside, reported that this is her first episode of confusion. She denies any recent weight loss, night sweats, fever, chills, chest pain, shortness of breath, or lower extremity edema. The patient is currently on Atenolol and is able to walk independently. Past Medical History Hypertension - CONSULTS | PROCEDURES Procedures: Head CT is without acute intracranial hemorrhage or midline shift. Hyperattenuating mass lesion medially in the left occipital lobe. Differential includes primary neoplasm Chest CT has a small pulmonary nodule in the upper lobes measuring 0.3 cm and are indeterminant. Recommend follow-up. No suspicious mass lesions. Abdomen/pelvis CT with mild short segment wall thickening in the sigmoid bowel suggestive of colitis. However intramural mass could not be excluded. Consider further evaluation with colonoscopy. Marked distention of the urinary bladder. MRI of the brain with and without has a heterogeneous mass within the posterior horn of the left ventricle corresponding to hypodensity identified in CT. There appears to be areas of hemosiderin deposition/calcification with minimal irregular enhancement. 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 - HOSPITAL COURSE Hospital Course: The patient was placed in inpatient status thinking that her sodium correction would occur slowly. With a low rate of normal saline at 75 cc an hour, the patient's sodium went from 118 then 126, and I saw her at 132. I stopped her normal saline and switch her to D5 and her sodium still continued to rise to 135. The patient felt back to baseline. She felt normal with orientation, speech, and no longer felt lightheaded. No nausea or vomiting. She wanted to go home. She was identified as having a UTI on admission. Preliminary urine culture has gram-negative rods that need further identification and sensitivities. I will be sending her home on Bactrim double strength. We discussed the differential diagnosis of hyponatremia. She does drink close to 4 L of water a day and I asked her to cut back to 2 L. She is not on any medications that would cause this such as hydrochlorothiazide or serotonin reuptake inhibitors. She does not have congestive heart failure or ascites. Thyroid disease is occasionally associated with this and she is currently being evaluated for thyroid. She could also have problems with SIADH, or related to the choroid plexus mass. I have asked her to follow-up with her primary care provider JESSI. I have given her a lab order slip for her to get her sodium checked on June 16 to make sure it staying stable. She is discharged in stable condition. She has improved much faster than I thought she was going to. Temperature is 37 degrees. Heart rate 90. Blood pressure 140/65. Respirations 20. 95% on room air. Neck is supple. Lungs are clear to auscultation and percussion. No tachypnea or increased respiratory effort. Regular rate and rhythm. No murmur. And abdomen is soft, nontender, normal bowel sounds. Extremities are without edema. She is able to transition from supine to sitting, sitting to standing without ataxia or dizziness. She ambulates in the room without any assistance. Greater than 30 minutes was spent coordinating discharge, discussing differential diagnosis of low sodium, differential diagnosis of her choroid plexus mass This document was made in part using voice recognition software. While efforts are made to proofread this document, sound alike and grammatical errors may occur. - ALLERGIES Allergies/Adverse Reactions: Allergies Allergy/AdvReac Type Severity Reaction Status Date / Time No Known Drug Allergies Allergy Verified 06/08/23 20:08 - MEDICATIONS Home Medications: Ambulatory Orders Medication Instructions Recorded Confirmed Acetaminophen [Aphen] 0.5 tab PO PRN PRN 06/09/23 06/09/23 Ascorbic Acid [Vitamin C] 3 tab PO DAILY 06/09/23 06/09/23 Calcium Carbonate [Calcium] 3 tab PO DAILY 06/09/23 06/09/23 Multivitamin W/Minerals [Theragran 1 tab PO DAILY 06/09/23 06/09/23 M] [place]-3 Fatty Acids [[place]-3] 2 cap PO DAILY 06/09/23 06/09/23 SULFAM/TRIM 800/160 Prepack 2 1 each PO BID #10 tablet 06/09/23 [BACTRIM DS 800/160 Prepack 2] atenoloL [Tenormin] 2 tab PO DAILY 06/09/23 06/09/23 - LABS Result Diagrams: 06/08/23 20:28 06/09/23 14:35"
[2023-06-09 16:14] VITALS: BP 172/99
[2023-06-09] MEDS ORDERED: SULFAMETH/TRIMETH DS 800/160 MG TABLET PO SCH (21:00)
[2023-06-09] MEDS ORDERED: cefTRIAXone 1 GM in SODIUM CHLORIDE 0.9% MINIBAG 100 ML IV SCH (23:00)
[2023-06-10] MEDS ORDERED: atenoloL 25 MG TABLET PO SCH (05:00)
== END 2023-06-09 17:00 | disposition home or self-care (01) | DRG 640 ==
LOC: ED 20:04 → MS2 06-09 00:29
PROVIDERS: ADMIT Internal Medicine; ATTEND Specialist
DX: E87.1 Hypo-osmolality and hyponatremia (principal); R22.0 Localized swelling, mass and lump, head; N30.00 Acute cystitis without hematuria; R11.2 Nausea with vomiting, unspecified; G93.41 Metabolic encephalopathy; Z20.822 Contact with and (suspected) exposure to COVID-19; N39.0 Urinary tract infection, site not specified; R53.1 Weakness; R53.83 Other fatigue; G93.89 Other specified disorders of brain; I10 Essential (primary) hypertension; R91.8 Other nonspecific abnormal finding of lung field
CPT/HCPCS: 36415; 70450; 70553; 71260; 74177; 80048; 80053; 81001; 83690; 84295; 85025; 87077; 87086; 87181; 87633; 96361; 96374; 96375; 99285; A9585; Q9967; 81003

== ENCOUNTER 2023-08-26 11:45 | Outpatient (CLI) | payer MEDICARE, OTHER | END 2023-08-26 12:00 | disposition home or self-care (01) | LOC: LAB.N 11:45 | PROVIDERS: ATTEND Registered Nurse | DX: N39.0 Urinary tract infection, site not specified (principal) | CPT/HCPCS: 87077; 87086; 87181 ==

== ENCOUNTER 2023-10-13 08:00 | Outpatient (CLI) | payer MEDICARE, OTHER ==
[2023-10-13 17:59] LABS: BILIRUBIN,URINE NEGATIVE (NEGATIVE); GLUCOSE, URINE (UA) NEGATIVE (NEGATIVE); KETONES,URINE (UA) NEGATIVE (NEGATIVE); LEUKOCYTE ESTERASE, URINE MODERATE (NEGATIVE); NITRITE,URINE NEGATIVE (NEGATIVE); OCCULT BLOOD,URINE TRACE-LYSE (NEGATIVE); PH,URINE 6.5 PH (5.0-7.5); PROTEIN,URINE NEGATIVE (NEGATIVE); UROBILINOGEN,URINE 0.2 (NORMAL) E.U./dL (NORMAL)
[2023-10-13 18:16] LABS: BACTERIA,URINE Few /HPF (None Seen); CLARITY,URINE CLEAR (CLEAR); RBC,URINE 0-5 /HPF (0-5); SQUAMOUS EPITHELIAL CELL,UR RARE Squamous (<= Few)
== END 2023-10-13 23:59 | disposition home or self-care (01) ==
LOC: LAB.WCP 08:00
PROVIDERS: ATTEND Physician Assistant
DX: N30.90 Cystitis, unspecified without hematuria (principal)
CPT/HCPCS: 81001; 87086

== ENCOUNTER 2024-06-18 19:29 | Outpatient (CLI) | payer MEDICARE, OTHER | END 2024-06-18 19:30 | disposition EMS.NT | LOC: EMS 19:29 | DX: I10 Essential (primary) hypertension (principal) ==